=== PATIENT | male | born 1980 | race Caucasian/White ===

== ENCOUNTER 2018-12-11 04:05 | Emergency (ER) | payer SELFPAY ==
[~2018-12-11] VITALS: Ht 182.9 cm; Wt 81.8 kg
[2018-12-11] MEDS ORDERED: GENTAMICIN15 ML/BTL OS (04:28)
[2018-12-11] MEDS ORDERED: (None)3.5 GM OS (04:28)
[2018-12-11 04:33] VITALS: BP 144/68
== END 2018-12-11 04:41 | disposition home or self-care (01) | DRG 125 ==
LOC: ED 04:05
DX: S05.02XA Injury of conjunctiva and corneal abrasion without foreign body, left eye, initial encounter (principal); H10.32 Unspecified acute conjunctivitis, left eye; H53.8 Other visual disturbances; X58.XXXA Exposure to other specified factors, initial encounter; Y92.89 Other specified places as the place of occurrence of the external cause; Y99.0 Civilian activity done for income or pay